=== PATIENT | female | born 1990 | race Caucasian/White ===

== ENCOUNTER 2021-07-20 22:23 | Emergency (ER) | payer OTHER, BC, MEDICAID | END 2021-07-20 23:55 | disposition home or self-care (01) | LOC: MADERS 22:23 | DX: S60.022A Contusion of left index finger without damage to nail, initial encounter (principal); F84.0 Autistic disorder; G40.909 Epilepsy, unspecified, not intractable, without status epilepticus; E66.9 Obesity, unspecified; W54.1XXA Struck by dog, initial encounter; Z68.45 Body mass index [BMI] 70 or greater, adult; Z79.899 Other long term (current) drug therapy ==

== ENCOUNTER 2021-09-21 12:59 | Outpatient (CLI) | payer BC, MEDICARE, MEDICAID | END 2021-09-21 13:00 | disposition home or self-care (01) | LOC: MADLAB 12:59 | PROVIDERS: ATTEND Registered Nurse | DX: R06.02 Shortness of breath (principal); R05.8 Other specified cough | CPT/HCPCS: 71046 ==